=== PATIENT | male | born 1965 | race Caucasian/White ===

== ENCOUNTER → 2021-03-07 | Outpatient (CLI) | payer OTHER | LOC: CAT 08:40 | PROVIDERS: ATTEND Family Medicine | DX: Z13.6 Encounter for screening for cardiovascular disorders (principal); E78.00 Pure hypercholesterolemia, unspecified; I25.10 Atherosclerotic heart disease of native coronary artery without angina pectoris ==

== ENCOUNTER → 2021-03-20 | Outpatient (CLI) | payer BC, OTHER | LOC: ULTRA 09:55 | PROVIDERS: ATTEND Family Medicine | DX: E07.9 Disorder of thyroid, unspecified (principal) ==

== ENCOUNTER → 2021-06-14 | Day surgery (SDC) | payer BC, OTHER ==
[~2021-06-14] VITALS: Ht 175.3 cm; Wt 112.9 kg
[~2021-06-14] MED LIST: ASA81BEC PO; COLACE100 MG PO; IBUPROFEN 200200 M1 PO; MIRALAX17 GM PO; ROSUVASTATIN CA10 MG PO; TRAMADOL 50 MG50 MG PO; TYLENOL325 MG PO
[2021-06-14 07:31] VITALS: BP 135/70
[2021-06-14 10:06] VITALS: BP 135/70
--- NOTE | 2021-06-19 13:07 | PATH ---
[facility] [address] [place] [address] PATHOLOGY RPT PROCEDURE Name: DAMIEN DAVE Room #: [facility] [place].#: [id number] Admission: 06/14/21 Date of : 63 Discharge: Report #: [id number] Path Case #: [id number] [facility] Accession Number: [id number] . 01 Material submitted: . hernia - HERNIA SAC . 01 Clinical history: . LAPAROSCOPIC HERNIA REPAIR/VENTRAL INCARCERATED VENTRAL HERNIA . 01 Diagnosis: Soft tissue "hernia sac", herniorrhaphy: - Saccular fibroadipose tissue with congestion consistent with incarcerated hernia. (SHA:[facility]; 06/16/2021) QTP 06/16/2021 [facility] Local . 01 Electronically signed: . Tunde Salas MD, Pathologist NPI- [id number] . 01 Gross description: . Received in formalin labeled "Damien Dave, hernia sac" is a portion of garza-pink membranous saclike tissue measuring 4.5 x 3.5 x 2.2 cm. The specimen is sectioned to reveal focal fibrotic areas and adherent yellow-garza fibroadipose tissue. No masses/nodules are identified. Egg Grader sections are submitted in cassette A1. ([facility] 06/15/2021) [facility] 06/15/2021 0856 Local . 01 Pathologist provided ICD-10: K43.9 . 01 CPT . 176534 Specimen Comment: A courtesy copy of this report has been sent to [phone], [phone] Specimen Comment: [id number] Specimen Comment: Report sent to / DR OCAMPO Specimen Comment: A duplicate report has been generated due to demographic updates. Performed at: [facility] [address], [place] [id number] MD Tunde Salas MD Phone: [phone]
== END | disposition home or self-care (01) ==
LOC: OR 05-19 11:48
PROVIDERS: ATTEND Surgery
DX: K43.6 Other and unspecified ventral hernia with obstruction, without gangrene (principal); E78.5 Hyperlipidemia, unspecified; Z98.890 Other specified postprocedural states; Z79.899 Other long term (current) drug therapy; Z20.822 Contact with and (suspected) exposure to COVID-19; Z85.820 Personal history of malignant melanoma of skin
CPT/HCPCS: 50010; 50101; 50386; 50555; 50980; 50984; 52265; 53307; 53310; 54022; 54118; 56462; 56522; 56525; 56526; 56530; 57092; 58574; 58586; 58911; 62110; 62900; 70005